=== PATIENT | male | born 1970 | race Two or more races ===

== ENCOUNTER 2020-05-30 11:07 | Emergency (ER) | payer OTHER ==
[2020-05-30 11:12] VITALS: BP 114/74; PULSE 65; TEMP 98.1; BMI 25.8
[2020-05-30] MEDS ORDERED: DIPHTH,PERTUSS(ACELL),TET 0.5 ML DISP.SYRIN IM ONE ×2 (11:34→11:57)
[2020-05-30] MEDS ORDERED: EMTRICITABINE 200MG/TENOFOVIR 300MG PO ONE (11:44)
[2020-05-30] MEDS ORDERED: RALTEGRAVIR POTASSIUM 400 MG TAB PO ONE (11:44)
--- NOTE | 2020-05-30 11:54 | PDOC ---
Post Exposure HPI - General Chief Complaint: Blood/Body Fluid Exposure SJR Stated Complaint: NEEDLE STICK Time Seen by Provider: 05/30/20 11:28 History Source: Patient - History of Present Illness Timing: this morning Past History - Medical History Allergies/Adverse Reactions: Allergies Allergy/AdvReac Type Severity Reaction Status Date / Time No Known Allergies Allergy Verified 05/30/20 11:12 COPD: No Diabetes: Yes Hypercholesterolemia: Yes - Psycho-Social/Smoking History Smoking History: Never smoked - Substance Abuse Hx (Audit-C & DAST Scrn) How often the patient has a drink containing alcohol: Never Score: In Men: 4 or > Positive; In Women: 3 or > Positive: 0 Screen Result (Pos requires Nsg. Audit-10AR): Negative Review of Systems - Review of Systems Integumentary: Yes: Other (needlestick to R middle finger) *Physical Exam - Vital Signs Last Vital Signs Temp Pulse Resp BP Pulse Ox 98.1 F 65 18 114/74 99 05/30/20 11:09 05/30/20 11:09 05/30/20 11:09 05/30/20 11:09 05/30/20 11:09 - Physical Exam General Appearance: Yes: Appropriately Dressed, Apparent Distress HEENT: positive: Normal Voice Neck: positive: Supple Respiratory/Chest: negative: Respiratory Distress Extremity: positive: Other (pinpoint abrasion to volar aspect of middle phalanx of R 3rd digit) Integumentary: positive: Dry, Warm Neurologic: positive: Fully Oriented, Alert, Normal Mood/Affect Medical Decision Making - Medical Decision Making 05/30/20 11:45 49 yo male, here for eval s/p needlestick exposure. 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 Pt states while going through belongings of a newly admitted pt w/ known h/o HCV, an uncapped needle protruding from source's bag struck pt's R 3rd finger. Pt was not wearing gloves at the time. States site did not bleed and was unable to express blood. Has since washed w/ soap and water. Of note, source's HIV was negative in 2018. Pt's hep B vaccinated. Unsure tetanus status. see exam Needle stick exposure w/ high risk source Spoke to staff at [employer] and got source pt's information, currently admitted, h/o HCV, staff to draw rapid HIV and hep panel as discussed ( neg HIV test in [address] [facility]) Pt works as security and hep B vaccinated -tetanus updated today -PEP recommended and accepted by pt, given 1st doses in ED -to f/u at [facility] for rest of meds to complete 30 days and for future testing Discharge - Discharge Information Problems reviewed: Yes Clinical Impression/Diagnosis: Needlestick injury of finger Condition: Good Disposition: HOME - Follow up/Referral Referrals: [facility] Providers [Provider Group] - Patient Discharge Instructions Patient Printed Discharge Instructions: How to Handle Body Fluid Exposure -- Non-Healthcare Worker (At Home, Caregi Additional Instructions: You had a needle stick exposure today Your baseline tests were sent off today You had a tetanus vaccine today HIV preventative meds recommended due to high risk patient. You will need to be on 2 medications for 1 month and we recommend you complete course regardless of source patients results Isentress is 1 tab twice a day(given few days worth) and truvada is 1 tab once a day (given 30 days worth) Take meds as directed and follow up at [facility] for rest of Isentress meds and repeat HIV and hepatitis test in 3 and 6 months Please call [facility] and follow up on HIV and hepatitis B on source pt - Post Discharge Activity Work/Back to School Note: Back to Work
[2020-05-30] MEDS ORDERED: HIV POST EXPOSURE PROPHYLAXIS KIT PO ONE ×2 (11:57→12:06)
[2020-05-30 12:20] LABS: BASO % 0.8 % (0-2.0); EOS % 6.2 % (0-4.5); HEMATOCRIT 40.3 % (35.4-49); HEMOGLOBIN 13.5 GM/dL (11.7-16.9); LYMPH % 19.9 % (8-40); MCH 26.9 pg (25.7-33.7); MCHC 33.6 g/dl (32.0-35.9); MEAN CELL VOLUME 80.2 fl (80-96); MEAN PLT VOLUME 7.4 fl (7.5-11.1); MONO % 10.9 % (3.8-10.2); NEUT % 62.2 % (42.8-82.8); PLATELET COUNT 255 K/MM3 (134-434); RBC 5.03 M/mm3 (4.00-5.60); RDW 12.8 % (11.9-15.9); WHITE BLOOD COUNT 5.4 K/mm3 (4.0-10.0)
[2020-05-30 12:50] LABS: ALBUMIN 4.1 g/dl (3.4-5.0); BILIRUBIN,TOTAL 0.5 mg/dL (0.2-1); BLOOD UREA NITROGEN 18.2 mg/dL (7-18); CALCIUM 9.4 mg/dL (8.5-10.1); PHOSPHOROUS 4.8 mg/dL (2.5-4.9); POTASSIUM 3.9 mmol/L (3.5-5.1); TOT PROT 7.3 g/dl (6.4-8.2)
== END 2020-05-30 12:22 | disposition home or self-care (01) ==
LOC: JERFT 11:07
PROC: 3E0234Z Introduction of Serum, Toxoid and Vaccine into Muscle, Percutaneous Approach (ICD-10-PCS; principal; 2020-05-30)
DX: S61.332A Puncture wound without foreign body of right middle finger with damage to nail, initial encounter (principal); W46.1XXA Contact with contaminated hypodermic needle, initial encounter
CPT/HCPCS: 36415; 80053; 82465; 82977; 83615; 84100; 84478; 84550; 85025; 86317; 86704; 86706; 86803; 87340; 87389; 90715; 99283-25